=== PATIENT | female | born 1930 | race African-American/Black ===

== ENCOUNTER 2018-10-26 17:44 | Inpatient (IN) | payer MEDICARE, MEDICAID ==
[~2018-10-26] VITALS: Ht 152.4 cm; Wt 59.0 kg
[~2018-10-26 17:44] MED LIST: FURO-152 MT; GABA-529 PO; LOSA100T14 PO; NEBI10TA2 PO; OMEP20TA2 PO; PREG75CA PO
[2018-10-26 19:39] LABS: HEMOGLOBIN. 11.7 g/dL (12.0-16.0); MEAN CORPUSCULAR HEMOGLOBIN 28.1 pg (28.0-32.0); MEAN CORPUSCULAR VOLUME 84.2 fL (81.0-99.0); MEAN PLATELET VOLUME 9.2 fl (7.4-10.4); PLATELET 322 x1000/uL (130-400); RED BLOOD CELL COUNT 4.16 mill/uL (4.2-5.4); RED CELL DISTRIBUTION WIDTH 17.2 % (11.6-14.6)
[2018-10-26 19:46] LABS: CHLORIDE 99 mEq/L (98-107)
[2018-10-26 20:07] LABS: CLARITY URINE CLEAR (CLEAR); KETONES URINE NEGATIVE (NEGATIVE); LEUKOCYTE ESTERASE URINE NEGATIVE (NEGATIVE); NITRITE URINE NEGATIVE (NEGATIVE); OCCULT BLOOD URINE NEGATIVE (NEGATIVE); PROTEIN URINE 1+ (NEGATIVE); SPECIFIC GRAVITY URINE 1.007 (1.005-1.030); UROBILINOGEN URINE 0.2 E.U./dL (0.2-1.0)
[2018-10-26 20:09] LABS: COLOR URINE YELLOW (YELLOW)
[2018-10-26 20:09] LABS: PLATELET ESTIMATE NORMAL
[2018-10-26 20:19] LABS: *BARBITURATES SCREEN URINE NEGATIVE (NEGATIVE)
[2018-10-26 20:21] LABS: *AMPHETAMINES SCREEN URINE NEGATIVE (NEGATIVE); *BENZODIAZEPINES SCREEN URINE NEGATIVE (NEGATIVE); *COCAINE SCREEN URINE NEGATIVE (NEGATIVE); METHADONE URINE SCREEN NEGATIVE (NEGATIVE); OPIATES URINE SCREEN NEGATIVE (NEGATIVE)
[2018-10-26 20:22] LABS: CANNABINOID URINE SCREEN NEGATIVE (NEGATIVE); PHENCYCLIDINE URINE SCREEN NEGATIVE (NEGATIVE)
[2018-10-26] MEDS ORDERED: ACETAMINOPHEN 325MG TABLET PO PRN (23:45)
[2018-10-26] MEDS ORDERED: ONDANSETRON HCL 4MG/2ML INJ IV PRN (23:45)
[2018-10-26] MEDS ORDERED: DOCUSATE SODIUM 100MG CAPSULE PO PRN (23:45)
[2018-10-26] MEDS ORDERED: GUAIFENESIN 200MG/10ML SUGAR FREE UDC PO PRN (23:45)
[2018-10-26] MEDS ORDERED: MAGNESIUM/ALUMINUM HYDROXIDE/SIMETHICONE 30ML UDC PO PRN (23:45)
[2018-10-26] MEDS ORDERED: LORAZEPAM 2MG/ML CPJ IV PRN (23:45)
[2018-10-27] VITALS (7 sets, daily range): BP systolic 140–176; BP diastolic 52–87
[2018-10-27] MEDS: CLONIDINE 0.1MG TABLET PO PRN (00:21)
[2018-10-27] MEDS: SODIUM CHLORIDE 0.45% 1,000 ML IV SCH (06:53)
[2018-10-27 07:23] LABS: BASOPHILS % 1.8 % (0.0-2.0); EOSINOPHILS % 1.3 % (0.0-5.0); HEMOGLOBIN. 9.7 g/dL (12.0-16.0); LYMPHOCYTES % 28.8 % (20.0-50.0); MEAN CORPUSCULAR HEMOGLOBIN 28.1 pg (28.0-32.0); MEAN CORPUSCULAR VOLUME 83.7 fL (81.0-99.0); MEAN PLATELET VOLUME 8.7 fl (7.4-10.4); MONOCYTES % 14.5 % (2.0-8.0); NEUTROPHILS % 53.6 % (40.0-76.0); PLATELET 241 x1000/uL (130-400); RED BLOOD CELL COUNT 3.46 mill/uL (4.2-5.4)
[2018-10-27 07:31] LABS: CHLORIDE 103 mEq/L (98-107)
[2018-10-27 07:43] LABS: CREATINE KINASE 35 IU/L (26-192); HDL CHOLESTEROL 28 mg/dL (40-59); LDL CHOLESTEROL 115 mg/dL (5-100); T4 FREE 1.21 ng/dL (0.76-1.46)
[2018-10-27] MEDS: ASPIRIN 81MG EC TABLET PO SCH (08:50)
[2018-10-27] MEDS: ENOXAPARIN 30MG/0.3ML SYR SUBCUT SCH (08:50)
[2018-10-27] MEDS: AMLODIPINE 10MG TABLET PO SCH (08:50)
[2018-10-27] MEDS: MULTIVITAMINS,THER W-MINERALS TABLET PO SCH (08:50)
[2018-10-27] MEDS ORDERED: POTASSIUM CHLORIDE 20MEQ TABLET SR PO SCH (13:30)
[2018-10-27 16:27] LABS: CREATINE KINASE 43 IU/L (26-192)
[2018-10-28] VITALS: BP 157/68
[2018-10-28 04:00] VITALS: BP 164/56
[2018-10-28 08:00] VITALS: BP 175/65
[2018-10-28] MEDS: ASPIRIN 81MG EC TABLET PO SCH (08:37)
[2018-10-28] MEDS: MULTIVITAMINS,THER W-MINERALS TABLET PO SCH (08:37)
[2018-10-28] MEDS: AMLODIPINE 10MG TABLET PO SCH (08:40)
[2018-10-28] MEDS: ENOXAPARIN 30MG/0.3ML SYR SUBCUT SCH (08:41)
[2018-10-28 09:36] LABS: BASOPHILS % 0.7 % (0.0-2.0); EOSINOPHILS % 2.1 % (0.0-5.0); HEMATOCRIT. 32.1 % (36.0-48.0); HEMOGLOBIN. 10.4 g/dL (12.0-16.0); LYMPHOCYTES % 35.5 % (20.0-50.0); MEAN CORPUSCULAR HEMOGLOBIN 27.5 pg (28.0-32.0); MEAN CORPUSCULAR VOLUME 85.2 fL (81.0-99.0); MEAN PLATELET VOLUME 8.9 fl (7.4-10.4); MONOCYTES % 13.7 % (2.0-8.0); PLATELET 235 x1000/uL (130-400); RED BLOOD CELL COUNT 3.77 mill/uL (4.2-5.4); RED CELL DISTRIBUTION WIDTH 17.1 % (11.6-14.6)
[2018-10-28 09:43] LABS: CHLORIDE 105 mEq/L (98-107)
[2018-10-28] MEDS: SODIUM CHLORIDE 0.45% 1,000 ML IV SCH (11:47)
[2018-10-28 12:00] VITALS: BP 161/70
[2018-10-28] MEDS ORDERED: LOSARTAN POTASSIUM 50 MG TABLET PO SCH (12:45)
[2018-10-28] MEDS: CLONIDINE 0.1MG TABLET PO PRN (13:29)
[2018-10-28 14:59] VITALS: BP 142/78
[2018-10-28 16:00] VITALS: BP 145/66
[2018-10-28] MEDS ORDERED: ATORVASTATIN CALCIUM 10MG TABLET PO SCH (21:00)
== END 2018-10-28 16:05 | disposition home health service (06) | DRG 640 ==
LOC: ER 17:44 → 5WST 22:27 → ENRESERV 22:38 → CANRESERV 22:38 → ENRESERV 10-28 03:53
PROVIDERS: ADMIT Hospitalist; ATTEND Hospitalist
DX: E87.1 Hypo-osmolality and hyponatremia (principal); G93.41 Metabolic encephalopathy; G45.9 Transient cerebral ischemic attack, unspecified; E44.0 Moderate protein-calorie malnutrition; E78.5 Hyperlipidemia, unspecified; I10 Essential (primary) hypertension; Z88.9 Allergy status to unspecified drugs, medicaments and biological substances; Z68.25 Body mass index [BMI] 25.0-25.9, adult
CPT/HCPCS: 36415; 71045; 80061; 80305; 82140; 82550; 83735; 84439; 84443; 84484; 93005; 93970; 96360; 96372; 97116; 97162; 97530; 99285; J1650